=== PATIENT | male | born 1980 | race Caucasian/White ===

== ENCOUNTER 2017-07-07 15:51 | Inpatient (IN) | payer MEDICARE, MEDICAID ==
[~2017-07-07] VITALS: Ht 167.6 cm; Wt 76.7 kg
[~2017-07-07 15:51] MED LIST: ARIP15TA2 PO; DIVA500T35 PO; LITH300C3 PO
[2017-07-07] MEDS ORDERED: OLANZapine 5 MG RAPDIS TABLET PO PRN (18:15)
[2017-07-07] MEDS ORDERED: ZOLPIDEM TARTRATE 10 MG TABLET PO PRN (18:15)
[2017-07-07 18:19] LABS: BASOPHILS % (AUTO) 0.4 % (0.0-2.0); EOSINOPHILS % (AUTO) 0.8 % (1.0-6.0); HEMATOCRIT 47.4 % (41-53); HEMOGLOBIN 16.2 g/dL (13.5-17.5); LYMPHOCYTES # (AUTO) 2.2 K/uL (1.0-4.8); LYMPHOCYTES % (AUTO) 20.2 % (22.0-44.0); MEAN CORPUSCULAR HEMOGLOBIN 32.4 pg (26.0-34.0); MEAN CORPUSCULAR HGB CONC 34.3 G/dL (31.0-37.0); MEAN CORPUSCULAR VOLUME 95 fL (80-100); MONOCYTES # (AUTO) 0.9 K/uL (0.1-1.0); MONOCYTES % (AUTO) 8.5 % (2.0-9.0); NEUTROPHILS # (AUTO) 7.5 K/uL (1.8-7.7); NEUTROPHILS % (AUTO) 70.1 % (40.0-70.0); PLATELET COUNT (AUTO) 236 K/uL (150-450); RED BLOOD CELL COUNT(AUTO) 5.01 MIL/uL (4.50-5.90); RED CELL DISTRIBUTION WIDTH 13.7 % (11.5-14.5)
[2017-07-07 18:21] LABS: AMPHET/METH SCREEN,URINE NEGATIVE (NEGATIVE); BARBITURATE SCREEN, URINE NEGATIVE (NEGATIVE); BENZODIAZEPINES SCREEN,URINE NEGATIVE (NEGATIVE); CANNABINOID SCREEN,URINE NEGATIVE (NEGATIVE); COCAINE SCREEN,URINE NEGATIVE (NEGATIVE); METHADONE SCREEN, URINE NEGATIVE (NEGATIVE); OPIATE SCREEN,URINE NEGATIVE (NEGATIVE); PHENCYCLIDINE SCREEN,URINE NEGATIVE (NEGATIVE)
[2017-07-07 18:25] LABS: ANION GAP 10 mmol/L (8-16); CARBON DIOXIDE 24 mmol/L (22-29); CHLORIDE 103 mmol/L (98-107); CREATININE 0.69 mg/dL (0.60-1.30); GLOMERULAR FILTR. RATE CALC > 60 mL/min (>60); GLUCOSE,RANDOM 96 mg/dL (70-110); POTASSIUM 4.1 mmol/L (3.5-5.1); SODIUM SERUM 137 mmol/L (136-145); UREA NITROGEN, BLOOD 16 mg/dL (7-18)
[2017-07-07 18:33] LABS: ALANINE AMINOTRANSFERASE 30 U/L (12-78); ALBUMIN 3.9 g/dL (3.4-5.0); ALKALINE PHOSPHATASE 90 U/L (46-116); ASPARTATE AMINOTRANSFERASE 37 U/L (15-37); BILIRUBIN,TOTAL 0.8 mg/dL (0.1-1.0); TOTAL PROTEIN, SERUM 7.2 g/dL (6.4-8.2)
[2017-07-07] MEDS ORDERED: DiphenhydrAMINE HCL 50 MG/ML VIAL IM ONE ×2 (21:45)
[2017-07-07] MEDS ORDERED: LORazepam 2 MG/ML VIAL IM ONE ×2 (21:45)
[2017-07-07] MEDS ORDERED: FluPHENAZine HCL 2.5 MG/ML INJ IM ONE (21:45)
[2017-07-08 01:28] VITALS: BP 117/63
[2017-07-08] MEDS ORDERED: -PHARMACY VACCINE NOTE- MISC ONE (01:45)
[2017-07-08] MEDS ORDERED: INFLUENZA VIRUS VACCINE QVS 2017-18 (3YR+)/PF 60 MCG/0.5 ML SYRINGE IM ONE (02:15)
[2017-07-08 08:20] VITALS: BP 131/84
[2017-07-08 08:48] LABS: CHOL/HDL RATIO 2.6 (4.2-7.3)
[2017-07-08] MEDS ORDERED: ALBUTEROL SULFATE HFA 90 MCG/PUFF 8 GM INHALER IH PRN (10:00)
[2017-07-08] MEDS ORDERED: CloNIDine HCL 0.1 MG TABLET PO PRN (10:00)
[2017-07-08] MEDS ORDERED: MAGNESIUM HYDROXIDE SUSPENSION 30 ML UDCUP PO PRN (10:00)
[2017-07-08] MEDS ORDERED: BENZOCAINE/MENTHOL LOZENGE MM PRN (10:00)
[2017-07-08] MEDS ORDERED: MAG HYDROX/AL HYDROX/SIMETH ES 30 ML SUSPENSION UDCUP PO PRN (10:00)
[2017-07-08] MEDS ORDERED: MINERAL OIL/PETROLATUM 120 GM CREAM TP PRN (10:00)
[2017-07-08] MEDS ORDERED: ONDANSETRON HCL 4 MG TABLET PO PRN (10:00)
[2017-07-08] MEDS ORDERED: ACETAMINOPHEN 325 MG TABLET PO PRN (10:00)
[2017-07-08] MEDS ORDERED: PETROLATUM,WHITE 71 GM JELLY TP PRN (10:00)
[2017-07-08] MEDS ORDERED: LOPERAMIDE HCL 2 MG CAPSULE PO PRN (10:00)
[2017-07-08] MEDS ORDERED: IBUPROFEN 600 MG TABLET PO PRN (10:00)
[2017-07-08] MEDS ORDERED: BACITRACIN 28.4 GM OINTMENT TP PRN (10:00)
[2017-07-08] MEDS: LITHIUM CARBONATE 300 MG CAPSULE PO SCH ×2 (12:29→17:00)
[2017-07-08] MEDS: DIVALPROEX SODIUM 500 MG DR TABLET PO SCH ×2 (12:29→17:00)
[2017-07-08 16:22] VITALS: BP 137/85
[2017-07-08] MEDS: RisperiDONE 1 MG TABLET PO SCH (17:00)
[2017-07-08] MEDS ORDERED: DiphenhydrAMINE HCL 50 MG/ML VIAL IM ONE (19:00)
[2017-07-09 06:45] VITALS: BP 123/67
[2017-07-09 08:20] VITALS: BP_SYST 98
[2017-07-09] MEDS: CHOLECALCIFEROL (VIT D3) 1,000 UNITS TABLET PO SCH (08:58)
[2017-07-09] MEDS: RisperiDONE 1 MG TABLET PO SCH ×2 (08:58→16:23)
[2017-07-09] MEDS: LITHIUM CARBONATE 300 MG CAPSULE PO SCH ×3 (08:58→16:23)
[2017-07-09] MEDS: DIVALPROEX SODIUM 500 MG DR TABLET PO SCH ×2 (08:58→16:23)
[2017-07-09] MEDS: LISINOPRIL 10 MG TABLET PO SCH (08:58)
[2017-07-09 16:23] VITALS: BP 135/79
[2017-07-09] MEDS: LORazepam 2 MG TABLET PO PRN (16:26)
[2017-07-09] MEDS ORDERED: DiphenhydrAMINE HCL 50 MG/ML VIAL IM ONE (17:00)
[2017-07-10 01:24] VITALS: BP 130/75
[2017-07-10 08:21] VITALS: BP 116/89
[2017-07-10] MEDS: LISINOPRIL 10 MG TABLET PO SCH (09:00)
[2017-07-10] MEDS: RisperiDONE 1 MG TABLET PO SCH ×2 (09:00→16:50)
[2017-07-10] MEDS: DIVALPROEX SODIUM 500 MG DR TABLET PO SCH ×2 (09:00→16:50)
[2017-07-10] MEDS: LITHIUM CARBONATE 300 MG CAPSULE PO SCH ×3 (09:00→16:50)
[2017-07-10] MEDS: CHOLECALCIFEROL (VIT D3) 1,000 UNITS TABLET PO SCH (09:00)
[2017-07-10 16:14] VITALS: BP 125/71
[2017-07-11 00:01] VITALS: BP 138/88
[2017-07-11 08:11] VITALS: BP 113/74
[2017-07-11] MEDS: DIVALPROEX SODIUM 500 MG DR TABLET PO SCH ×2 (08:49→16:44)
[2017-07-11] MEDS: CHOLECALCIFEROL (VIT D3) 1,000 UNITS TABLET PO SCH (08:49)
[2017-07-11] MEDS: LITHIUM CARBONATE 300 MG CAPSULE PO SCH ×3 (08:49→16:44)
[2017-07-11] MEDS: RisperiDONE 1 MG TABLET PO SCH ×2 (08:49→08:55)
[2017-07-11] MEDS: LISINOPRIL 10 MG TABLET PO SCH ×2 (08:49→08:55)
[2017-07-11 16:15] VITALS: BP 125/72
[2017-07-11] MEDS: QUEtiapine FUMARATE 200 MG TABLET PO SCH (16:44)
[2017-07-12 00:01] VITALS: BP 115/78
[2017-07-12 08:16] VITALS: BP 127/80
[2017-07-12] MEDS: CHOLECALCIFEROL (VIT D3) 1,000 UNITS TABLET PO SCH (08:36)
[2017-07-12] MEDS: DIVALPROEX SODIUM 500 MG DR TABLET PO SCH ×2 (08:36→16:36)
[2017-07-12] MEDS: LITHIUM CARBONATE 300 MG CAPSULE PO SCH ×3 (08:36→16:36)
[2017-07-12] MEDS: QUEtiapine FUMARATE 200 MG TABLET PO SCH ×2 (08:36→16:36)
[2017-07-12] MEDS: LISINOPRIL 10 MG TABLET PO SCH (08:39)
[2017-07-12 16:24] VITALS: BP 133/84
[2017-07-13 00:14] VITALS: BP 126/63
[2017-07-13 08:00] VITALS: BP 111/79
[2017-07-13] MEDS: LITHIUM CARBONATE 300 MG CAPSULE PO SCH ×3 (08:08→16:40)
[2017-07-13] MEDS: QUEtiapine FUMARATE 200 MG TABLET PO SCH ×2 (08:08→16:40)
[2017-07-13] MEDS: CHOLECALCIFEROL (VIT D3) 1,000 UNITS TABLET PO SCH (08:08)
[2017-07-13] MEDS: DIVALPROEX SODIUM 500 MG DR TABLET PO SCH ×2 (08:09→16:40)
[2017-07-13] MEDS: LISINOPRIL 10 MG TABLET PO SCH (08:10)
[2017-07-13] MEDS: LORazepam 2 MG TABLET PO PRN (12:46)
[2017-07-13 16:18] VITALS: BP 119/72
[2017-07-14 05:57] VITALS: BP 138/84
[2017-07-14] MEDS: DIVALPROEX SODIUM 500 MG DR TABLET PO SCH ×2 (08:09→16:26)
[2017-07-14] MEDS: QUEtiapine FUMARATE 200 MG TABLET PO SCH ×2 (08:09→16:26)
[2017-07-14] MEDS: CHOLECALCIFEROL (VIT D3) 1,000 UNITS TABLET PO SCH (08:09)
[2017-07-14] MEDS: LISINOPRIL 10 MG TABLET PO SCH (08:10)
[2017-07-14] MEDS: LITHIUM CARBONATE 300 MG CAPSULE PO SCH ×3 (08:10→16:26)
[2017-07-14 08:19] LABS: LITHIUM 0.33 mmol/L (0.60-1.20)
[2017-07-14 08:25] VITALS: BP 138/83
[2017-07-14 16:00] VITALS: BP 113/69
[2017-07-15 05:34] VITALS: BP 115/74
[2017-07-15] MEDS: QUEtiapine FUMARATE 200 MG TABLET PO SCH ×2 (08:12→16:34)
[2017-07-15] MEDS: CHOLECALCIFEROL (VIT D3) 1,000 UNITS TABLET PO SCH (08:12)
[2017-07-15] MEDS: LITHIUM CARBONATE 300 MG CAPSULE PO SCH ×3 (08:13→16:34)
[2017-07-15] MEDS: LISINOPRIL 10 MG TABLET PO SCH (08:13)
[2017-07-15] MEDS: DIVALPROEX SODIUM 500 MG DR TABLET PO SCH ×2 (08:13→16:34)
[2017-07-15 08:37] VITALS: BP 115/60
[2017-07-15 16:23] VITALS: BP 119/65
[2017-07-16 00:33] VITALS: BP 103/66
[2017-07-16] MEDS: QUEtiapine FUMARATE 200 MG TABLET PO SCH ×2 (08:13→16:13)
[2017-07-16] MEDS: LITHIUM CARBONATE 300 MG CAPSULE PO SCH ×3 (08:13→16:13)
[2017-07-16] MEDS: CHOLECALCIFEROL (VIT D3) 1,000 UNITS TABLET PO SCH (08:13)
[2017-07-16] MEDS: LISINOPRIL 10 MG TABLET PO SCH (08:13)
[2017-07-16] MEDS: DIVALPROEX SODIUM 500 MG DR TABLET PO SCH ×2 (08:13→16:13)
[2017-07-16] MEDS: LORazepam 2 MG TABLET PO PRN (08:15)
[2017-07-16 08:39] VITALS: BP 121/66
[2017-07-16 16:00] VITALS: BP 105/62
[2017-07-17 00:22] VITALS: BP 103/61
[2017-07-17] MEDS: DIVALPROEX SODIUM 500 MG DR TABLET PO SCH (08:13)
[2017-07-17] MEDS: CHOLECALCIFEROL (VIT D3) 1,000 UNITS TABLET PO SCH (08:13)
[2017-07-17] MEDS: LITHIUM CARBONATE 300 MG CAPSULE PO SCH (08:13)
[2017-07-17] MEDS: LISINOPRIL 10 MG TABLET PO SCH (08:13)
[2017-07-17] MEDS: QUEtiapine FUMARATE 200 MG TABLET PO SCH (08:13)
[2017-07-17 08:45] VITALS: BP 122/70
[2017-07-17] MEDS ORDERED: QUET200T PO (09:29)
[2017-07-17] MEDS ORDERED: CHOL50004 PO (09:29)
[2017-07-17] MEDS ORDERED: LISI-661 PO (09:29)
== END 2017-07-17 12:15 | disposition home or self-care (01) | DRG 885 ==
LOC: EMS 15:53 → EEVIPCON 15:53 → B2X 21:30
PROVIDERS: ADMIT Psychiatry & Neurology Psychiatry; ATTEND Psychiatry & Neurology Psychiatry
DX: F20.0 Paranoid schizophrenia (principal); R45.851 Suicidal ideations; E55.9 Vitamin D deficiency, unspecified; F12.90 Cannabis use, unspecified, uncomplicated; F15.10 Other stimulant abuse, uncomplicated; F17.200 Nicotine dependence, unspecified, uncomplicated; G47.00 Insomnia, unspecified; I10 Essential (primary) hypertension; J44.9 Chronic obstructive pulmonary disease, unspecified; K59.00 Constipation, unspecified; L30.9 Dermatitis, unspecified; F32.9 Major depressive disorder, single episode, unspecified; K40.90 Unilateral inguinal hernia, without obstruction or gangrene, not specified as recurrent; S51.812A Laceration without foreign body of left forearm, initial encounter; Y93.89 Activity, other specified; Y92.89 Other specified places as the place of occurrence of the external cause; Y99.8 Other external cause status; Z88.8 Allergy status to other drugs, medicaments and biological substances; Z79.899 Other long term (current) drug therapy; Z71.6 Tobacco abuse counseling
CPT/HCPCS: 96372; 99285; G0480; J1200; J2060; J3490

== ENCOUNTER 2017-09-17 16:32 | Inpatient (IN) | payer MEDICARE, MEDICAID ==
[~2017-09-17] VITALS: Ht 167.6 cm; Wt 72.6 kg
[~2017-09-17 16:32] MED LIST changes: -ARIP15TA2 PO; +CHOL50004 PO; +LISI-661 PO; +QUET200T PO
[2017-09-17] MEDS ORDERED: HALOPERIDOL LACTATE 5 MG/ML VIAL ONE (17:49)
[2017-09-17] MEDS ORDERED: DiphenhydrAMINE HCL 50 MG/ML VIAL ONE ×2 (17:49→17:51)
[2017-09-17] MEDS ORDERED: LORazepam 2 MG/ML VIAL ONE ×2 (17:49→17:51)
[2017-09-17] MEDS ORDERED: FluPHENAZine HCL 2.5 MG/ML INJ IM ONE (18:00)
[2017-09-17] MEDS ORDERED: DiphenhydrAMINE HCL 50 MG/ML VIAL IM ONE (18:00)
[2017-09-17] MEDS ORDERED: LORazepam 2 MG/ML VIAL IM ONE (18:00)
[2017-09-17 18:12] LABS: BASOPHILS % (AUTO) 0.5 % (0.0-2.0); EOSINOPHILS % (AUTO) 0.5 % (1.0-6.0); HEMATOCRIT 43.9 % (41-53); HEMOGLOBIN 14.9 g/dL (13.5-17.5); LYMPHOCYTES # (AUTO) 2.4 K/uL (1.0-4.8); LYMPHOCYTES % (AUTO) 17.7 % (22.0-44.0); MEAN CORPUSCULAR HEMOGLOBIN 32.2 pg (26.0-34.0); MEAN CORPUSCULAR VOLUME 95 fL (80-100); MONOCYTES % (AUTO) 7.1 % (2.0-9.0); NEUTROPHILS # (AUTO) 10.1 K/uL (1.8-7.7); NEUTROPHILS % (AUTO) 74.2 % (40.0-70.0); PLATELET COUNT (AUTO) 267 K/uL (150-450); RED BLOOD CELL COUNT(AUTO) 4.64 MIL/uL (4.50-5.90); RED CELL DISTRIBUTION WIDTH 13.7 % (11.5-14.5)
[2017-09-17 18:24] LABS: ANION GAP 11 mmol/L (8-16); CARBON DIOXIDE 23 mmol/L (22-29); CHLORIDE 104 mmol/L (98-107); GLOMERULAR FILTR. RATE CALC > 60 mL/min (>60); GLUCOSE,RANDOM 114 mg/dL (70-110); SODIUM SERUM 138 mmol/L (136-145); UREA NITROGEN, BLOOD 17 mg/dL (7-18)
[2017-09-17 18:31] LABS: ALANINE AMINOTRANSFERASE 28 U/L (12-78); ALBUMIN 3.8 g/dL (3.4-5.0); ALKALINE PHOSPHATASE 95 U/L (46-116); ASPARTATE AMINOTRANSFERASE 30 U/L (15-37); BILIRUBIN,TOTAL 0.5 mg/dL (0.1-1.0); TOTAL PROTEIN, SERUM 7.4 g/dL (6.4-8.2)
[2017-09-17 19:11] LABS: VALPROIC ACID 4 mcg/mL (50-100)
[2017-09-17 19:12] LABS: LITHIUM < 0.20 mmol/L (0.60-1.20)
[2017-09-17] MEDS ORDERED: LORazepam 2 MG TABLET PO PRN (19:15)
[2017-09-17] MEDS ORDERED: ZOLPIDEM TARTRATE 10 MG TABLET PO PRN ×2 (19:15→22:45)
[2017-09-17] MEDS ORDERED: OLANZapine 5 MG RAPDIS TABLET PO PRN (19:15)
[2017-09-17 19:51] LABS: AMPHET/METH SCREEN,URINE POSITIVE (NEGATIVE); BARBITURATE SCREEN, URINE NEGATIVE (NEGATIVE); BENZODIAZEPINES SCREEN,URINE NEGATIVE (NEGATIVE); CANNABINOID SCREEN,URINE NEGATIVE (NEGATIVE); COCAINE SCREEN,URINE NEGATIVE (NEGATIVE); METHADONE SCREEN, URINE NEGATIVE (NEGATIVE); OPIATE SCREEN,URINE NEGATIVE (NEGATIVE)
[2017-09-17 19:52] LABS: PHENCYCLIDINE SCREEN,URINE NEGATIVE (NEGATIVE)
[2017-09-18] MEDS: OLANZapine 5 MG RAPDIS TABLET PO PRN (10:10)
[2017-09-18] MEDS: LORazepam 2 MG TABLET PO PRN (10:10)
[2017-09-18 18:44] VITALS: BP 140/86
[2017-09-19 06:47] VITALS: BP 137/79
[2017-09-19 08:05] VITALS: BP 141/69
[2017-09-19] MEDS ORDERED: MAG HYDROX/AL HYDROX/SIMETH ES 30 ML SUSPENSION UDCUP PO PRN (08:45)
[2017-09-19] MEDS ORDERED: BACITRACIN 28.4 GM OINTMENT TP PRN (08:45)
[2017-09-19] MEDS ORDERED: CloNIDine HCL 0.1 MG TABLET PO PRN (08:45)
[2017-09-19] MEDS ORDERED: BENZOCAINE/MENTHOL LOZENGE MM PRN (08:45)
[2017-09-19] MEDS ORDERED: IBUPROFEN 600 MG TABLET PO PRN (08:45)
[2017-09-19] MEDS ORDERED: ALBUTEROL SULFATE HFA 90 MCG/PUFF 8 GM INHALER IH PRN (08:45)
[2017-09-19] MEDS ORDERED: MAGNESIUM HYDROXIDE SUSPENSION 30 ML UDCUP PO PRN (08:45)
[2017-09-19] MEDS ORDERED: ACETAMINOPHEN 325 MG TABLET PO PRN (08:45)
[2017-09-19] MEDS ORDERED: PETROLATUM,WHITE 71 GM JELLY TP PRN (08:45)
[2017-09-19] MEDS ORDERED: LOPERAMIDE HCL 2 MG CAPSULE PO PRN (08:45)
[2017-09-19] MEDS ORDERED: ONDANSETRON HCL 4 MG TABLET PO PRN (08:45)
[2017-09-19] MEDS: NICOTINE 21 MG/24 HOUR PATCH TD SCH (08:54)
[2017-09-19] MEDS: LISINOPRIL 10 MG TABLET PO SCH (08:55)
[2017-09-19] MEDS: CHOLECALCIFEROL (VIT D3) 1,000 UNITS TABLET PO SCH (08:55)
[2017-09-19] MEDS: DIVALPROEX SODIUM 500 MG DR TABLET PO SCH ×2 (08:56→16:33)
[2017-09-19] MEDS: LITHIUM CARBONATE 300 MG CAPSULE PO SCH ×2 (08:56→16:32)
[2017-09-19] MEDS: QUEtiapine FUMARATE 200 MG TABLET PO SCH ×2 (08:56→16:32)
[2017-09-19 16:05] VITALS: BP 113/78
[2017-09-20 06:36] VITALS: BP 113/76
[2017-09-20 08:23] VITALS: BP 121/90
[2017-09-20] MEDS: LITHIUM CARBONATE 300 MG CAPSULE PO SCH ×2 (08:26→16:56)
[2017-09-20] MEDS: QUEtiapine FUMARATE 200 MG TABLET PO SCH ×2 (08:26→16:56)
[2017-09-20] MEDS: LISINOPRIL 10 MG TABLET PO SCH (08:27)
[2017-09-20] MEDS: CHOLECALCIFEROL (VIT D3) 1,000 UNITS TABLET PO SCH (08:27)
[2017-09-20] MEDS: NICOTINE 21 MG/24 HOUR PATCH TD SCH (08:27)
[2017-09-20] MEDS: DIVALPROEX SODIUM 500 MG DR TABLET PO SCH ×2 (08:28→16:56)
[2017-09-20] MEDS: LORazepam 2 MG TABLET PO PRN (13:27)
[2017-09-20 16:24] VITALS: BP 100/62
[2017-09-20] MEDS: TERBINAFINE HCL 1% 30 GM CREAM TP SCH ×2 (17:00→21:29)
[2017-09-21 06:07] VITALS: BP 117/72
[2017-09-21 08:17] VITALS: BP 150/80
[2017-09-21] MEDS: LORazepam 2 MG TABLET PO PRN ×2 (08:48→16:11)
[2017-09-21] MEDS: LISINOPRIL 10 MG TABLET PO SCH (08:48)
[2017-09-21] MEDS: DIVALPROEX SODIUM 500 MG DR TABLET PO SCH ×2 (08:48→16:11)
[2017-09-21] MEDS: LITHIUM CARBONATE 300 MG CAPSULE PO SCH ×2 (08:48→16:11)
[2017-09-21] MEDS: NICOTINE 21 MG/24 HOUR PATCH TD SCH (08:48)
[2017-09-21] MEDS: QUEtiapine FUMARATE 200 MG TABLET PO SCH ×2 (08:48→16:11)
[2017-09-21] MEDS: CHOLECALCIFEROL (VIT D3) 1,000 UNITS TABLET PO SCH (08:49)
[2017-09-21] MEDS: TERBINAFINE HCL 1% 30 GM CREAM TP SCH ×2 (09:26→17:04)
[2017-09-21] MEDS: BACITRACIN 28.4 GM OINTMENT TP SCH ×2 (10:11→17:04)
[2017-09-21 16:09] VITALS: BP 123/66
[2017-09-22 00:22] VITALS: BP 122/76
[2017-09-22] MEDS: LORazepam 2 MG TABLET PO PRN ×2 (07:47→16:16)
[2017-09-22 08:05] VITALS: BP 146/74
[2017-09-22] MEDS: DIVALPROEX SODIUM 500 MG DR TABLET PO SCH ×2 (08:09→16:16)
[2017-09-22] MEDS: QUEtiapine FUMARATE 200 MG TABLET PO SCH ×2 (08:09→16:16)
[2017-09-22] MEDS: NICOTINE 21 MG/24 HOUR PATCH TD SCH (08:09)
[2017-09-22] MEDS: CHOLECALCIFEROL (VIT D3) 1,000 UNITS TABLET PO SCH (08:09)
[2017-09-22] MEDS: LITHIUM CARBONATE 300 MG CAPSULE PO SCH ×2 (08:09→16:16)
[2017-09-22] MEDS: LISINOPRIL 10 MG TABLET PO SCH (08:09)
[2017-09-22] MEDS: BACITRACIN 28.4 GM OINTMENT TP SCH ×2 (08:10→16:16)
[2017-09-22] MEDS: TERBINAFINE HCL 1% 30 GM CREAM TP SCH ×2 (08:10→16:16)
[2017-09-22 09:35] LABS: LITHIUM 0.21 mmol/L (0.60-1.20)
[2017-09-22 09:57] LABS: HEMOGLOBIN A1C 5.1 % (4.5-6.2)
[2017-09-22 16:00] VITALS: BP 116/70
[2017-09-23 04:14] VITALS: BP 112/76
[2017-09-23] MEDS: LISINOPRIL 10 MG TABLET PO SCH (08:05)
[2017-09-23] MEDS: LITHIUM CARBONATE 300 MG CAPSULE PO SCH ×2 (08:05→17:02)
[2017-09-23] MEDS: QUEtiapine FUMARATE 200 MG TABLET PO SCH ×2 (08:05→17:02)
[2017-09-23] MEDS: DIVALPROEX SODIUM 500 MG DR TABLET PO SCH ×2 (08:05→17:02)
[2017-09-23] MEDS: CHOLECALCIFEROL (VIT D3) 1,000 UNITS TABLET PO SCH (08:05)
[2017-09-23] MEDS: NICOTINE 21 MG/24 HOUR PATCH TD SCH (08:06)
[2017-09-23 08:16] VITALS: BP 125/82
[2017-09-23] MEDS: BACITRACIN 28.4 GM OINTMENT TP SCH (10:33)
[2017-09-23 16:05] VITALS: BP 126/73
[2017-09-23] MEDS: LORazepam 2 MG TABLET PO PRN (17:02)
[2017-09-24 01:13] VITALS: BP 122/78
[2017-09-24 08:07] LABS: BAND NEUTROPHILS % (MANUAL) 0 % (0-5)
[2017-09-24 08:18] LABS: HEMATOCRIT 45.3 % (41-53); HEMOGLOBIN 15.9 g/dL (13.5-17.5); MEAN CORPUSCULAR HEMOGLOBIN 33.6 pg (26.0-34.0); MEAN CORPUSCULAR HGB CONC 35.2 G/dL (31.0-37.0); MEAN CORPUSCULAR VOLUME 95 fL (80-100); PLATELET COUNT (AUTO) 318 K/uL (150-450); RED BLOOD CELL COUNT(AUTO) 4.75 MIL/uL (4.50-5.90); RED CELL DISTRIBUTION WIDTH 14.2 % (11.5-14.5)
[2017-09-24 08:26] LABS: ANION GAP 3 mmol/L (8-16); CALCIUM, TOTAL 9.2 mg/dL (8.8-10.5); CARBON DIOXIDE 30 mmol/L (22-29); CHLORIDE 102 mmol/L (98-107); CREATININE 0.84 mg/dL (0.60-1.30); GLOMERULAR FILTR. RATE CALC > 60 mL/min (>60); GLUCOSE,RANDOM 86 mg/dL (70-110); PHOSPHORUS 3.1 mg/dL (2.5-4.9); POTASSIUM 5.3 mmol/L (3.5-5.1); SODIUM SERUM 135 mmol/L (136-145); UREA NITROGEN, BLOOD 10 mg/dL (7-18)
[2017-09-24] MEDS: CHOLECALCIFEROL (VIT D3) 1,000 UNITS TABLET PO SCH (08:32)
[2017-09-24] MEDS: LORazepam 2 MG TABLET PO PRN ×2 (08:32→17:20)
[2017-09-24] MEDS: QUEtiapine FUMARATE 200 MG TABLET PO SCH ×2 (08:32→17:20)
[2017-09-24] MEDS: LISINOPRIL 10 MG TABLET PO SCH (08:32)
[2017-09-24] MEDS: NICOTINE 21 MG/24 HOUR PATCH TD SCH (08:32)
[2017-09-24] MEDS: DIVALPROEX SODIUM 500 MG DR TABLET PO SCH ×2 (08:32→17:20)
[2017-09-24] MEDS: LITHIUM CARBONATE 300 MG CAPSULE PO SCH ×2 (08:32→17:20)
[2017-09-24] MEDS: OLANZapine 5 MG RAPDIS TABLET PO PRN (08:32)
[2017-09-24] MEDS: BACITRACIN 28.4 GM OINTMENT TP SCH (08:38)
[2017-09-24 08:45] VITALS: BP 120/75
[2017-09-24] MEDS ORDERED: SODIUM CHLORIDE 1 GM TABLET PO ONE ×2 (09:45→18:00)
[2017-09-24] MEDS ORDERED: SODIUM POLYSTYRENE SULFONATE 15 GM/60 ML SUSPENSION BOTTLE PO ONE (09:45)
[2017-09-24 10:05] LABS: EOSINOPHILS % (MANUAL) 2 % (1-6); LYMPHOCYTES % (MANUAL) 17 % (22-44); MONOCYTES % (MANUAL) 9 % (2-9); SEGMENTED NEUTROPHILS % 72 % (40-70)
[2017-09-24 16:19] VITALS: BP 116/89
[2017-09-25 03:58] VITALS: BP 117/79
[2017-09-25 08:02] VITALS: BP 137/76
[2017-09-25] MEDS: QUEtiapine FUMARATE 200 MG TABLET PO SCH (08:05)
[2017-09-25] MEDS: DIVALPROEX SODIUM 500 MG DR TABLET PO SCH (08:05)
[2017-09-25] MEDS: CHOLECALCIFEROL (VIT D3) 1,000 UNITS TABLET PO SCH (08:05)
[2017-09-25] MEDS: LISINOPRIL 10 MG TABLET PO SCH (08:05)
[2017-09-25] MEDS: LITHIUM CARBONATE 300 MG CAPSULE PO SCH (08:05)
[2017-09-25] MEDS: NICOTINE 21 MG/24 HOUR PATCH TD SCH (08:06)
[2017-09-25] MEDS: BACITRACIN 28.4 GM OINTMENT TP SCH (08:07)
[2017-09-25 08:10] LABS: ANION GAP 3 mmol/L (8-16); CALCIUM, TOTAL 9.6 mg/dL (8.8-10.5); CARBON DIOXIDE 32 mmol/L (22-29); CHLORIDE 102 mmol/L (98-107); CREATININE 0.89 mg/dL (0.60-1.30); GLOMERULAR FILTR. RATE CALC > 60 mL/min (>60); GLUCOSE,RANDOM 103 mg/dL (70-110); SODIUM SERUM 137 mmol/L (136-145); UREA NITROGEN, BLOOD 12 mg/dL (7-18)
[2017-09-25 08:22] LABS: POTASSIUM 6.1 mmol/L (3.5-5.1)
[2017-09-25] MEDS ORDERED: SODIUM POLYSTYRENE SULFONATE 15 GM/60 ML SUSPENSION BOTTLE PO ONE (08:45)
[2017-09-25] MEDS: LORazepam 2 MG TABLET PO PRN (08:47)
== END 2017-09-25 15:00 | disposition home or self-care (01) | DRG 885 ==
LOC: EMS 16:33 → B3A 09-18 17:33
PROVIDERS: ADMIT Psychiatry & Neurology Psychiatry; ATTEND Psychiatry & Neurology Psychiatry
DX: F20.0 Paranoid schizophrenia (principal); Z78.1 Physical restraint status; E55.9 Vitamin D deficiency, unspecified; F12.90 Cannabis use, unspecified, uncomplicated; G47.00 Insomnia, unspecified; I10 Essential (primary) hypertension; J44.9 Chronic obstructive pulmonary disease, unspecified; K21.9 Gastro-esophageal reflux disease without esophagitis; L08.9 Local infection of the skin and subcutaneous tissue, unspecified; K59.00 Constipation, unspecified; F32.9 Major depressive disorder, single episode, unspecified; F17.210 Nicotine dependence, cigarettes, uncomplicated; F10.20 Alcohol dependence, uncomplicated; Z59.0 Homelessness; Z88.8 Allergy status to other drugs, medicaments and biological substances; Z79.899 Other long term (current) drug therapy; Z71.6 Tobacco abuse counseling; Z71.51 Drug abuse counseling and surveillance of drug abuser
CPT/HCPCS: 83036; 83735; 84100; 85007; 87081; 96372; 99291; G0480; J1200; J1630; J2060; J3490

== ENCOUNTER 2020-03-11 19:30 | Emergency (ER) | payer MEDICARE, MEDICAID ==
[~2020-03-11] VITALS: Ht 170.2 cm; Wt 75.0 kg
[~2020-03-11 19:30] MED LIST changes: +CHOL125C2 PO; -CHOL50004 PO; +DIVA-112 PO; -DIVA500T35 PO
[2020-03-11 21:52] LABS: BASOPHILS % (AUTO) 0.4 % (0.0-2.0); EOSINOPHILS % (AUTO) 0.3 % (1.0-6.0); HEMATOCRIT 44.3 % (41-53); HEMOGLOBIN 14.8 g/dL (13.5-17.5); LYMPHOCYTES # (AUTO) 2.4 K/uL (1.0-4.8); LYMPHOCYTES % (AUTO) 14.9 % (22.0-44.0); MEAN CORPUSCULAR HEMOGLOBIN 32.4 pg (26.0-34.0); MEAN CORPUSCULAR HGB CONC 33.3 G/dL (31.0-37.0); MEAN CORPUSCULAR VOLUME 97 fL (80-100); MONOCYTES # (AUTO) 1.1 K/uL (0.1-1.0); NEUTROPHILS # (AUTO) 12.3 K/uL (1.8-7.7); NEUTROPHILS % (AUTO) 77.4 % (40.0-70.0); PLATELET COUNT (AUTO) 268 K/uL (150-450); RED BLOOD CELL COUNT(AUTO) 4.56 MIL/uL (4.50-5.90); RED CELL DISTRIBUTION WIDTH 14.1 % (11.5-14.5)
[2020-03-11 22:02] LABS: ANION GAP 9 mmol/L (8-16); CALCIUM, TOTAL 9.3 mg/dL (8.8-10.5); CARBON DIOXIDE 27 mmol/L (22-29); CHLORIDE 101 mmol/L (98-107); CREATININE 0.62 mg/dL (0.60-1.30); GLOMERULAR FILTR. RATE CALC > 60 mL/min (>60); GLUCOSE,RANDOM 91 mg/dL (70-110); POTASSIUM 3.6 mmol/L (3.5-5.1); SODIUM SERUM 137 mmol/L (136-145); UREA NITROGEN, BLOOD 21 mg/dL (7-18)
[2020-03-11 22:08] LABS: ALANINE AMINOTRANSFERASE 41 U/L (12-78); ALBUMIN 3.9 g/dL (3.4-5.0); ALKALINE PHOSPHATASE 86 U/L (46-116); ASPARTATE AMINOTRANSFERASE 33 U/L (15-37); BILIRUBIN,TOTAL 0.8 mg/dL (0.1-1.0)
[2020-03-11 23:36] VITALS: BP 150/81
[2020-03-13] MEDS ORDERED: QUET25TA PO (17:58)
[2020-03-13] MEDS ORDERED: NALT380S2 IM (17:58)
[2020-03-13] MEDS ORDERED: NALT50TA6 PO (17:58)
== END 2020-03-12 | disposition home or self-care (01) ==
LOC: EMS 19:32
DX: D72.829 Elevated white blood cell count, unspecified (principal); F15.10 Other stimulant abuse, uncomplicated; F14.90 Cocaine use, unspecified, uncomplicated; F12.90 Cannabis use, unspecified, uncomplicated; F17.210 Nicotine dependence, cigarettes, uncomplicated; F32.9 Major depressive disorder, single episode, unspecified; Z59.0 Homelessness
CPT/HCPCS: 36415; 80053; 85025; 99285; G0480

== ENCOUNTER 2020-03-13 17:22 | Inpatient (IN) | payer MEDICARE, MEDICAID ==
[~2020-03-13] VITALS: Ht 165.1 cm; Wt 68.9 kg
[2020-03-13] MEDS ORDERED: NALT50TA6 PO (17:58)
[2020-03-13] MEDS ORDERED: NALT380S2 IM (17:58)
[2020-03-13] MEDS ORDERED: QUET25TA PO (17:58)
[2020-03-13] MEDS ORDERED: HALOPERIDOL LACTATE 5 MG/ML VIAL ONE (18:12)
[2020-03-13] MEDS ORDERED: LORazepam 2 MG/ML VIAL ONE (18:12)
[2020-03-13] MEDS ORDERED: DiphenhydrAMINE HCL 50 MG/ML VIAL ONE (18:12)
[2020-03-13] MEDS ORDERED: HALOPERIDOL LACTATE 5 MG/ML VIAL IM ONE (18:15)
[2020-03-13] MEDS ORDERED: LORazepam 2 MG/ML VIAL IM ONE (18:15)
[2020-03-13] MEDS ORDERED: DiphenhydrAMINE HCL 50 MG/ML VIAL IM ONE (18:15)
[2020-03-13 18:22] LABS: EOSINOPHILS % (AUTO) 1.9 % (1.0-6.0); HEMATOCRIT 42.4 % (41-53); HEMOGLOBIN 14.5 g/dL (13.5-17.5); LYMPHOCYTES % (AUTO) 23.7 % (22.0-44.0); MEAN CORPUSCULAR HEMOGLOBIN 33.3 pg (26.0-34.0); MEAN CORPUSCULAR HGB CONC 34.1 G/dL (31.0-37.0); MEAN CORPUSCULAR VOLUME 98 fL (80-100); MONOCYTES # (AUTO) 0.8 K/uL (0.1-1.0); MONOCYTES % (AUTO) 10.1 % (2.0-9.0); NEUTROPHILS # (AUTO) 5.2 K/uL (1.8-7.7); NEUTROPHILS % (AUTO) 63.3 % (40.0-70.0); PLATELET COUNT (AUTO) 249 K/uL (150-450); RED BLOOD CELL COUNT(AUTO) 4.35 MIL/uL (4.50-5.90); RED CELL DISTRIBUTION WIDTH 13.9 % (11.5-14.5)
[2020-03-13 18:36] LABS: ANION GAP 8 mmol/L (8-16); CALCIUM, TOTAL 8.8 mg/dL (8.8-10.5); CARBON DIOXIDE 24 mmol/L (22-29); CHLORIDE 110 mmol/L (98-107); CREATININE 0.59 mg/dL (0.60-1.30); GLOMERULAR FILTR. RATE CALC > 60 mL/min (>60); GLUCOSE,RANDOM 83 mg/dL (70-110); SODIUM SERUM 142 mmol/L (136-145); UREA NITROGEN, BLOOD 22 mg/dL (7-18)
[2020-03-13 18:42] LABS: ALANINE AMINOTRANSFERASE 33 U/L (12-78); ALBUMIN 3.4 g/dL (3.4-5.0); ALKALINE PHOSPHATASE 85 U/L (46-116); ASPARTATE AMINOTRANSFERASE 26 U/L (15-37); BILIRUBIN,TOTAL 0.3 mg/dL (0.1-1.0); TOTAL PROTEIN, SERUM 6.7 g/dL (6.4-8.2)
[2020-03-13 21:10] LABS: COVID AG,FIA SOURCE NASOPHARYNGEAL
[2020-03-13] MEDS ORDERED: ZOLPIDEM TARTRATE 10 MG TABLET PO PRN (21:45)
[2020-03-13 21:55] LABS: AMPHET/METH SCREEN,URINE POSITIVE (NEGATIVE); BARBITURATE SCREEN, URINE NEGATIVE (NEGATIVE); BENZODIAZEPINES SCREEN,URINE NEGATIVE (NEGATIVE); CANNABINOID SCREEN,URINE NEGATIVE (NEGATIVE); COCAINE SCREEN,URINE NEGATIVE (NEGATIVE); METHADONE SCREEN, URINE NEGATIVE (NEGATIVE); OPIATE SCREEN,URINE NEGATIVE (NEGATIVE); PHENCYCLIDINE SCREEN,URINE NEGATIVE (NEGATIVE)
[2020-03-14 00:48] VITALS: BP 135/84
[2020-03-14] MEDS ORDERED: PNEUMOCOCCAL VACCINE POLYVALENT 0.5 ML VIAL [PPSV23] IM ONE (01:45)
[2020-03-14] MEDS ORDERED: INFLUENZA VIRUS VACCINE QVS 2020-21 (6MO+)/PF 60 MCG/0.5 ML SYRINGE IM ONE (01:45)
[2020-03-14 08:07] VITALS: BP 135/73
[2020-03-14] MEDS ORDERED: CloNIDine HCL 0.1 MG TABLET PO PRN (09:00)
[2020-03-14] MEDS ORDERED: ONDANSETRON HCL 4 MG TABLET PO PRN (09:00)
[2020-03-14] MEDS ORDERED: LOPERAMIDE HCL 2 MG CAPSULE PO PRN (09:00)
[2020-03-14] MEDS ORDERED: NICOTINE 14 MG/24 HOUR PATCH TD PRN (09:00)
[2020-03-14] MEDS ORDERED: ACETAMINOPHEN 325 MG TABLET PO PRN (09:00)
[2020-03-14] MEDS ORDERED: ALBUTEROL SULFATE HFA 90 MCG/PUFF 8 GM INHALER IH PRN (09:00)
[2020-03-14] MEDS ORDERED: DOCUSATE SODIUM 100 MG CAPSULE PO PRN (09:00)
[2020-03-14] MEDS ORDERED: MAGNESIUM HYDROXIDE SUSPENSION 30 ML UDCUP PO PRN (09:00)
[2020-03-14] MEDS ORDERED: GuaiFENesin/D-METHORPHAN [SUGAR-FREE] 200-20MG/10 ML SYRUP UDCUP PO PRN (09:00)
[2020-03-14] MEDS ORDERED: MAG HYDROX/AL HYDROX/SIMETH ES 30 ML SUSPENSION UDCUP PO PRN (09:00)
[2020-03-14] MEDS ORDERED: IBUPROFEN 400 MG TABLET PO PRN (09:00)
[2020-03-14] MEDS ORDERED: PETROLATUM,WHITE 28 GM JELLY TP PRN (09:00)
[2020-03-14] MEDS: QUEtiapine FUMARATE 200 MG TABLET PO SCH ×2 (14:04→20:28)
[2020-03-14] MEDS: DIVALPROEX SODIUM 500 MG DR TABLET PO SCH ×2 (14:04→20:28)
[2020-03-14 16:21] VITALS: BP 140/70
[2020-03-14] MEDS: LORazepam 2 MG TABLET PO PRN (16:21)
[2020-03-15 00:47] VITALS: BP 118/78
[2020-03-15] MEDS: LORazepam 2 MG TABLET PO PRN (08:02)
[2020-03-15] MEDS: DIVALPROEX SODIUM 500 MG DR TABLET PO SCH ×2 (08:03→20:17)
[2020-03-15] MEDS: QUEtiapine FUMARATE 200 MG TABLET PO SCH ×2 (08:03→20:17)
[2020-03-15] MEDS: NICOTINE 21 MG/24 HOUR PATCH TD SCH (08:09)
[2020-03-15 08:24] VITALS: BP 145/79
[2020-03-15 16:37] VITALS: BP 126/79
[2020-03-16 05:46] VITALS: BP 138/86
[2020-03-16] MEDS: LORazepam 2 MG TABLET PO PRN (08:01)
[2020-03-16] MEDS: DIVALPROEX SODIUM 500 MG DR TABLET PO SCH ×2 (08:01→20:32)
[2020-03-16] MEDS: QUEtiapine FUMARATE 200 MG TABLET PO SCH ×2 (08:01→20:32)
[2020-03-16] MEDS ORDERED: ChlorproMAZINE HCL 50 MG/2 ML AMP ONE (08:04)
[2020-03-16] MEDS ORDERED: LORazepam 2 MG/ML VIAL ONE (08:04)
[2020-03-16] MEDS ORDERED: DiphenhydrAMINE HCL 50 MG/ML VIAL ONE (08:04)
[2020-03-16] MEDS ORDERED: DiphenhydrAMINE HCL 50 MG/ML VIAL IM ONE (08:15)
[2020-03-16] MEDS ORDERED: LORazepam 2 MG/ML VIAL IM ONE (08:15)
[2020-03-16] MEDS ORDERED: ChlorproMAZINE HCL 50 MG/2 ML AMP IM ONE (08:15)
[2020-03-16 08:24] VITALS: BP 136/81
[2020-03-16] MEDS: NICOTINE 21 MG/24 HOUR PATCH TD SCH (08:45)
[2020-03-16 09:06] LABS: CHOL/HDL RATIO 2.9 (4.2-7.3)
[2020-03-17 00:16] VITALS: BP 101/63
[2020-03-17 08:07] VITALS: BP 117/81
[2020-03-17] MEDS: QUEtiapine FUMARATE 100 MG TABLET PO PRN (08:42)
[2020-03-17] MEDS: LORazepam 2 MG TABLET PO PRN ×2 (08:42→19:44)
[2020-03-17] MEDS: DIVALPROEX SODIUM 500 MG DR TABLET PO SCH ×2 (08:42→20:37)
[2020-03-17] MEDS: QUEtiapine FUMARATE 200 MG TABLET PO SCH ×2 (08:43→20:37)
[2020-03-17] MEDS: NICOTINE 21 MG/24 HOUR PATCH TD SCH (08:43)
[2020-03-17 16:18] VITALS: BP 118/78
[2020-03-18 00:38] VITALS: BP 132/83
[2020-03-18] MEDS: QUEtiapine FUMARATE 200 MG TABLET PO SCH ×2 (08:16→20:45)
[2020-03-18] MEDS: LORazepam 2 MG TABLET PO PRN (08:16)
[2020-03-18] MEDS: NICOTINE 21 MG/24 HOUR PATCH TD SCH (08:16)
[2020-03-18] MEDS: DIVALPROEX SODIUM 500 MG DR TABLET PO SCH ×2 (08:16→20:45)
[2020-03-18 08:38] VITALS: BP 127/78
[2020-03-18] MEDS ORDERED: DiphenhydrAMINE HCL 50 MG/ML VIAL ONE (12:14)
[2020-03-18] MEDS ORDERED: LORazepam 2 MG/ML VIAL ONE (12:14)
[2020-03-18] MEDS ORDERED: ChlorproMAZINE HCL 50 MG/2 ML AMP ONE (12:14)
[2020-03-18] MEDS ORDERED: DiphenhydrAMINE HCL 50 MG/ML VIAL IM ONE (12:15)
[2020-03-18] MEDS ORDERED: LORazepam 2 MG/ML VIAL IM ONE (12:15)
[2020-03-18] MEDS ORDERED: ChlorproMAZINE HCL 50 MG/2 ML AMP IM ONE (12:15)
[2020-03-18 16:44] VITALS: BP 110/73
[2020-03-19 05:41] VITALS: BP 112/79
[2020-03-19] MEDS: QUEtiapine FUMARATE 200 MG TABLET PO SCH ×2 (08:29→20:38)
[2020-03-19] MEDS: DIVALPROEX SODIUM 500 MG DR TABLET PO SCH ×3 (08:29→16:03)
[2020-03-19] MEDS: NICOTINE 21 MG/24 HOUR PATCH TD SCH (08:30)
[2020-03-19 08:31] VITALS: BP 124/89
[2020-03-19] MEDS ORDERED: LORazepam 2 MG/ML VIAL IM ONE (12:30)
[2020-03-19] MEDS ORDERED: HALOPERIDOL LACTATE 5 MG/ML VIAL IM ONE (12:30)
[2020-03-19] MEDS ORDERED: DiphenhydrAMINE HCL 50 MG/ML VIAL IM ONE (12:30)
[2020-03-19] MEDS ORDERED: LORazepam 2 MG/ML VIAL ONE (12:32)
[2020-03-19] MEDS ORDERED: HALOPERIDOL LACTATE 5 MG/ML VIAL ONE (12:33)
[2020-03-19] MEDS ORDERED: DiphenhydrAMINE HCL 50 MG/ML VIAL ONE (12:33)
[2020-03-19] MEDS: LITHIUM CARBONATE 300 MG CAPSULE PO SCH (16:03)
[2020-03-19] MEDS: LORazepam 2 MG TABLET PO PRN (16:03)
[2020-03-19 16:17] VITALS: BP 136/78
[2020-03-19] MEDS: OLANZapine 10 MG TABLET PO SCH (20:38)
[2020-03-20 06:11] VITALS: BP 123/78
[2020-03-20] MEDS: LORazepam 2 MG TABLET PO PRN ×2 (06:51→16:52)
[2020-03-20] MEDS: DIVALPROEX SODIUM 500 MG DR TABLET PO SCH ×3 (08:07→16:52)
[2020-03-20] MEDS: QUEtiapine FUMARATE 200 MG TABLET PO SCH ×2 (08:07→21:16)
[2020-03-20] MEDS: LITHIUM CARBONATE 300 MG CAPSULE PO SCH ×2 (08:07→16:52)
[2020-03-20 08:10] VITALS: BP 114/73
[2020-03-20] MEDS: NICOTINE 21 MG/24 HOUR PATCH TD SCH (08:15)
[2020-03-20] MEDS ORDERED: LORazepam 2 MG/ML VIAL ONE (11:22)
[2020-03-20] MEDS ORDERED: DiphenhydrAMINE HCL 50 MG/ML VIAL ONE (11:22)
[2020-03-20] MEDS ORDERED: HALOPERIDOL LACTATE 5 MG/ML VIAL ONE (11:22)
[2020-03-20] MEDS ORDERED: DiphenhydrAMINE HCL 50 MG/ML VIAL IM ONE (11:30)
[2020-03-20] MEDS ORDERED: LORazepam 2 MG/ML VIAL IM ONE ×2 (11:30→13:30)
[2020-03-20] MEDS ORDERED: HALOPERIDOL LACTATE 5 MG/ML VIAL IM ONE ×2 (11:30→13:30)
[2020-03-20] MEDS: QUEtiapine FUMARATE 100 MG TABLET PO PRN (16:52)
[2020-03-20] MEDS: OLANZapine 10 MG TABLET PO SCH (21:16)
[2020-03-21 06:15] VITALS: BP 122/86
[2020-03-21 08:22] VITALS: BP 122/80
[2020-03-21] MEDS: QUEtiapine FUMARATE 200 MG TABLET PO SCH ×2 (08:50→20:00)
[2020-03-21] MEDS: LORazepam 2 MG TABLET PO PRN ×2 (08:50→13:12)
[2020-03-21] MEDS: LITHIUM CARBONATE 300 MG CAPSULE PO SCH ×2 (08:50→16:57)
[2020-03-21] MEDS: DIVALPROEX SODIUM 500 MG DR TABLET PO SCH ×3 (08:51→16:57)
[2020-03-21] MEDS: NICOTINE 21 MG/24 HOUR PATCH TD SCH (08:51)
[2020-03-21 17:31] VITALS: BP 117/79
[2020-03-21] MEDS: OLANZapine 10 MG TABLET PO SCH (20:00)
[2020-03-22 05:43] VITALS: BP 117/76
[2020-03-22] MEDS: LORazepam 2 MG TABLET PO PRN ×3 (06:44→20:55)
[2020-03-22] MEDS: QUEtiapine FUMARATE 200 MG TABLET PO SCH ×2 (08:58→20:55)
[2020-03-22] MEDS: DIVALPROEX SODIUM 500 MG DR TABLET PO SCH ×3 (08:58→16:00)
[2020-03-22] MEDS: LITHIUM CARBONATE 300 MG CAPSULE PO SCH ×2 (08:58→16:00)
[2020-03-22 09:04] VITALS: BP 117/77
[2020-03-22] MEDS: NICOTINE 21 MG/24 HOUR PATCH TD SCH (09:13)
[2020-03-22 16:42] VITALS: BP 131/84
[2020-03-22] MEDS: OLANZapine 10 MG TABLET PO SCH (20:55)
[2020-03-23 06:08] VITALS: BP 121/79
[2020-03-23] MEDS: LORazepam 2 MG TABLET PO PRN ×3 (08:00→20:34)
[2020-03-23] MEDS: NICOTINE 21 MG/24 HOUR PATCH TD SCH (08:01)
[2020-03-23] MEDS: DIVALPROEX SODIUM 500 MG DR TABLET PO SCH ×3 (08:01→16:18)
[2020-03-23] MEDS: LITHIUM CARBONATE 300 MG CAPSULE PO SCH ×2 (08:01→16:18)
[2020-03-23] MEDS: QUEtiapine FUMARATE 200 MG TABLET PO SCH ×2 (08:01→20:34)
[2020-03-23 08:07] VITALS: BP 134/80
[2020-03-23 16:16] VITALS: BP 126/71
[2020-03-23] MEDS: OLANZapine 10 MG TABLET PO SCH (20:34)
[2020-03-24 00:04] VITALS: BP 127/87
[2020-03-24] MEDS: LORazepam 2 MG TABLET PO PRN ×4 (06:03→18:09)
[2020-03-24] MEDS: QUEtiapine FUMARATE 200 MG TABLET PO SCH ×2 (08:02→20:21)
[2020-03-24] MEDS: LITHIUM CARBONATE 300 MG CAPSULE PO SCH ×2 (08:03→16:00)
[2020-03-24] MEDS: NICOTINE 21 MG/24 HOUR PATCH TD SCH (08:03)
[2020-03-24] MEDS: DIVALPROEX SODIUM 500 MG DR TABLET PO SCH ×3 (08:03→16:00)
[2020-03-24] MEDS: QUEtiapine FUMARATE 100 MG TABLET PO PRN (12:04)
[2020-03-24 16:54] VITALS: BP 134/81
[2020-03-24] MEDS: OLANZapine 10 MG TABLET PO SCH (20:21)
[2020-03-25 01:00] VITALS: BP 128/81
[2020-03-25 08:09] VITALS: BP 126/76
[2020-03-25] MEDS: LITHIUM CARBONATE 300 MG CAPSULE PO SCH (08:25)
[2020-03-25] MEDS: QUEtiapine FUMARATE 200 MG TABLET PO SCH (08:25)
[2020-03-25] MEDS: LORazepam 2 MG TABLET PO PRN (08:25)
[2020-03-25] MEDS: DIVALPROEX SODIUM 500 MG DR TABLET PO SCH (08:25)
[2020-03-25] MEDS: NICOTINE 21 MG/24 HOUR PATCH TD SCH (09:00)
[2020-03-25] MEDS ORDERED: QUET200T PO (12:00)
[2020-03-25] MEDS ORDERED: DIVA-112 PO (12:00)
[2020-03-25] MEDS ORDERED: OLAN10TA3 PO (12:00)
[2020-03-25] MEDS ORDERED: LITH300C3 PO (12:00)
== END 2020-03-25 12:35 | disposition home or self-care (01) | DRG 885 ==
LOC: EMS 17:22 → B2X 21:38 → B3A 03-19 14:44
PROVIDERS: ADMIT Psychiatry & Neurology Psychiatry; ATTEND Psychiatry & Neurology Psychiatry
DX: F20.0 Paranoid schizophrenia (principal); F15.10 Other stimulant abuse, uncomplicated; F17.200 Nicotine dependence, unspecified, uncomplicated; J45.909 Unspecified asthma, uncomplicated; I10 Essential (primary) hypertension; F10.10 Alcohol abuse, uncomplicated; F17.210 Nicotine dependence, cigarettes, uncomplicated; F32.9 Major depressive disorder, single episode, unspecified; F99 Mental disorder, not otherwise specified; F19.10 Other psychoactive substance abuse, uncomplicated; Z88.8 Allergy status to other drugs, medicaments and biological substances; Z79.899 Other long term (current) drug therapy; Z59.0 Homelessness; Z28.21 Immunization not carried out because of patient refusal; Z03.818 Encounter for observation for suspected exposure to other biological agents ruled out
CPT/HCPCS: 87426; G0480; J1200; J1630; J2060; J3230